=== PATIENT | female | born 1975 | race Caucasian/White ===

== ENCOUNTER 2020-04-22 18:28 | Observation (INO) | payer BC ==
[2020-04-22 19:09] LABS: #Basophils 0.1 thou/uL (0.0-0.2); #Eosinphils 0.1 thou/uL (0.0-0.7); #Lymphocytes 2.8 thou/uL (1.20-3.40); #Monocytes 0.5 thou/uL (0.11-0.59); %Basophils 0.6 % (0.0-1.0); %Eosinophils 0.3 % (0.0-10.0); %Lymphocytes 15.1 % (21.0-51.0); %Monocytes 2.5 % (0.0-10.0); %Neutrophils 81.4 % (42.0-75.0); Mean Corpuscular HGB CONC 33.2 g/dL (32.0-36.0); Mean Corpuscular Hemoglobin 30.3 pg (27.0-31.0); Mean Corpuscular Volume 91.3 fL (78.0-98.0); Mean Platelet Volume 7.8 fL (7.4-10.4); Platelet Count 314 thou/uL (130-400); RBC Distribution Width 12.2 % (11.5-14.5); Red Blood Cell (RBC) Count 4.63 mill/uL (4.20-5.40); White Blood Cell (WBC) Count 18.4 thou/uL (4.8-10.8)
[2020-04-22 19:28] LABS: ALT (SGPT) 44 U/L (8-55); AST (SGOT) 41 U/L (5-34); Albumin 3.5 g/dL (3.5-5.0); Alkaline Phosphatase 42 U/L (40-110); Anion Gap 13 mmol/L (10-20); BUN (Urea Nitrogen) 11 mg/dL (7.0-18.7); Bilirubin, Total 0.4 mg/dL (0.2-1.2); Calc. Creatinine Clearance 0 mL/min (70-130); Carbon Dioxide 17 mmol/L (22-29); Chloride 113 mmol/L (98-107); Globulin 1.8 g/dL (2.4-3.5); Glucose 124 mg/dL (70-105); Protein, Total 5.3 g/dL (6.0-8.3); Sodium 140 mmol/L (136-145)
[2020-04-22 19:33] LABS: Potassium 2.8 mmol/L (3.5-5.1)
[2020-04-22 20:01] LABS: Bilirubin Negative (Negative); Blood, Urine Negative (Negative); Clarity Clear (Clear); Glucose, Urine (Dipstick) Normal (Negative); Ketone, Urine Trace mg/dL (Negative); Leukocyte Negative Leu/uL (Negative); Nitrite Negative (Negative); Protein, Urine (Dipstick) Negative (Neg-Trace); Specific Gravity, Urine 1.007 (1.002-1.036); Urobilinogen Normal mg/dL (Less than 2)
[2020-04-22] MEDS ORDERED: Potassium Chloride 20 MEQ TAB ONE (20:14)
[2020-04-22] MEDS ORDERED: Magnesium 2 GM/50 ML BAG (IN WATER) ONE (20:53)
[2020-04-22 22:21] LABS: CKMB 1.3 ng/mL (0-6.6)
[2020-04-22] MEDS ORDERED: Aspirin Chewable 81 MG TAB ONE (22:39)
[2020-04-22] MEDS ORDERED: Acetaminophen 325 MG TAB PO PRN (23:38)
[2020-04-22] MEDS ORDERED: Ondansetron ODT 4 MG TAB PO PRN (23:38)
[2020-04-22] MEDS ORDERED: Ondansetron PF 4 MG/2 ML Vial IVP PRN (23:38)
[2020-04-22] MEDS ORDERED: Nitroglycerin 0.4 MG TAB (25 Tab Bottle) SL PRN (23:44)
[2020-04-23 01:16] LABS: Troponin I 0.069 ng/mL (< 0.028)
[2020-04-23 01:27] VITALS: BMI 25.7
[2020-04-23] MEDS ORDERED: Enoxaparin Sodium 80 MG/0.8 ML SYRINGE SC SCH ×3 (02:45→21:00)
[2020-04-23 04:34] LABS: SARS-CoV-2 PCR by NAA Not Detected (NotDetected)
[2020-04-23 04:39] LABS: Hemoglobin 11.4 g/dL (12.0-16.0); Mean Corpuscular HGB CONC 33.8 g/dL (32.0-36.0); Mean Corpuscular Hemoglobin 30.9 pg (27.0-31.0); Mean Corpuscular Volume 91.3 fL (78.0-98.0); Mean Platelet Volume 8.1 fL (7.4-10.4); Platelet Count 257 thou/uL (130-400); RBC Distribution Width 12.2 % (11.5-14.5); Red Blood Cell (RBC) Count 3.68 mill/uL (4.20-5.40); White Blood Cell (WBC) Count 13.1 thou/uL (4.8-10.8)
[2020-04-23 04:48] LABS: Anion Gap 10 mmol/L (10-20); BUN (Urea Nitrogen) 9 mg/dL (7.0-18.7); Calc. Creatinine Clearance 135 mL/min (70-130); Calcium 7.8 mg/dL (7.8-10.44); Carbon Dioxide 17 mmol/L (22-29); Chloride 113 mmol/L (98-107); Glucose 89 mg/dL (70-105); Potassium 4.1 mmol/L (3.5-5.1); Sodium 136 mmol/L (136-145)
[2020-04-23 04:52] LABS: Troponin I 0.054 ng/mL (< 0.028)
[2020-04-23 05:16] LABS: Band 7 % (5-11); Eosinophils 2 % (0-10); Lymphocytes 26 % (21-51); MDiff Complete? YES; Monocytes 5 % (0-10); Neutrophil 60 % (42-75)
[2020-04-23] MEDS ORDERED: Enoxaparin Sodium 40 MG/0.4 ML SYRINGE SC SCH (09:00)
[2020-04-23] MEDS ORDERED: Enoxaparin Sodium 60 MG/0.6 ML SYRINGE SC SCH ×2 (09:00→21:00)
[2020-04-23] MEDS ORDERED: Aspirin Chewable 81 MG TAB PO SCH (09:00)
== END 2020-04-23 04:26 | disposition short-term general hospital (02) ==
LOC: ERS 18:28 → ERHOLD 23:20
PROVIDERS: ADMIT Student in an Organized Health Care Education/Training Program; ATTEND Student in an Organized Health Care Education/Training Program
DX: I21.4 Non-ST elevation (NSTEMI) myocardial infarction (principal); E87.6 Hypokalemia; E83.42 Hypomagnesemia; Z20.822 Contact with and (suspected) exposure to COVID-19
CPT/HCPCS: 36415; 71045; 80048; 80053; 81003; 82553; 83735; 84484; 85007; 85025; 85027; 85379; 87635; 93005; 96365; G0378; J3475; U0003; U0005

== ENCOUNTER 2020-06-04 09:11 | Outpatient (CLI) | payer BC | END 2020-06-04 09:12 | disposition home or self-care (01) | LOC: TBSIIMAG 09:11 | PROVIDERS: ATTEND Obstetrics & Gynecology | DX: M54.12 Radiculopathy, cervical region (principal); Z98.890 Other specified postprocedural states | CPT/HCPCS: 72040 ==

== ENCOUNTER 2020-07-13 08:47 | Outpatient (CLI) | payer BC | END 2020-07-13 08:48 | disposition home or self-care (01) | LOC: TBSIIMAG 08:47 | PROVIDERS: ATTEND Neurological Surgery | DX: M54.12 Radiculopathy, cervical region (principal); Z98.1 Arthrodesis status | CPT/HCPCS: 72040 ==

== ENCOUNTER 2021-01-21 12:22 | Emergency (ER) | payer BC ==
[2021-01-21] MEDS ORDERED: Boostrix 0.5 ML (Tdap) VIAL ONE (14:05)
== END 2021-01-21 15:16 | disposition home or self-care (01) ==
LOC: ERS 12:22
DX: S61.231A Puncture wound without foreign body of left index finger without damage to nail, initial encounter (principal); Z23 Encounter for immunization; F17.210 Nicotine dependence, cigarettes, uncomplicated; W26.0XXA Contact with knife, initial encounter
CPT/HCPCS: 90471; 90715